=== PATIENT | female | born 1980 | race Caucasian/White ===

== ENCOUNTER 2021-12-30 11:57 | Inpatient (IN) | payer MEDICAID ==
[~2021-12-30] VITALS: Ht 157.5 cm; Wt 117.5 kg
[2021-12-30] MEDS ORDERED: ONDANSETRON HCL 4MG/2ML INJ IV STA (12:21)
[2021-12-30] MEDS ORDERED: KETOROLAC 30MG/ML VIAL IV STA (12:21)
[2021-12-30] MEDS ORDERED: SODIUM CHLORIDE 0.9% 1,000 ML IV ONE (12:30)
[2021-12-30 13:21] LABS: BASOPHILS % 0.7 % (0.0-2.0); EOSINOPHILS % 0.3 % (0.0-5.0); HEMATOCRIT. 46.7 % (36.0-48.0); HEMOGLOBIN. 15.4 g/dL (12.0-16.0); LYMPHOCYTES % 13.7 % (20.0-50.0); MEAN CORPUSCULAR HEMOGLOBIN 29.2 pg (28.0-32.0); MEAN CORPUSCULAR VOLUME 88.6 fL (81.0-99.0); MEAN PLATELET VOLUME 8.2 fl (7.4-10.4); MONOCYTES % 6.6 % (2.0-8.0); NEUTROPHILS % 78.7 % (40.0-76.0); PLATELET 280 x1000/uL (130-400); RED BLOOD CELL COUNT 5.28 mill/uL (4.2-5.4); RED CELL DISTRIBUTION WIDTH 12.8 % (11.6-14.6)
[2021-12-30 13:30] LABS: CHLORIDE 106 mEq/L (98-107)
[2021-12-30 13:45] LABS: HCG SCREEN NEGATIVE
[2021-12-30] MEDS ORDERED: IOHEXOL-300 100 ML BOTTLE ONE (14:41)
[2021-12-30 17:59] LABS: CLARITY URINE CLEAR (CLEAR); COLOR URINE YELLOW (YELLOW); KETONES URINE NEGATIVE (NEGATIVE); LEUKOCYTE ESTERASE URINE 1+ (NEGATIVE); NITRITE URINE NEGATIVE (NEGATIVE); OCCULT BLOOD URINE TRACE (NEGATIVE); PH URINE 6.5 (4.5-8.0); PROTEIN URINE TRACE (NEGATIVE); SPECIFIC GRAVITY URINE 1.065 (1.005-1.030)
[2021-12-30] MEDS ORDERED: CEFTRIAXONE 1 G PREMIX 50 ML IV ONE (18:30)
[2021-12-30] MEDS ORDERED: CLONIDINE 0.1MG TABLET PO PRN (20:00)
[2021-12-30] MEDS ORDERED: HYDROMORPHONE HCL/PF 2MG/ML CPJ IV PRN (20:00)
[2021-12-30] MEDS ORDERED: ONDANSETRON HCL 4MG/2ML INJ IV PRN (20:00)
[2021-12-30] MEDS ORDERED: ENOXAPARIN 40MG/0.4ML SYR SUBCUT SCH (20:00)
[2021-12-30] MEDS ORDERED: GUAIFENESIN 200MG/10ML SUGAR FREE UDC PO PRN (20:00)
[2021-12-30] MEDS ORDERED: ACETAMINOPHEN 325MG TABLET PO PRN (20:00)
[2021-12-30] MEDS ORDERED: LEVOFLOXACIN 500MG PREMIX 100 ML IV SCH (20:00)
[2021-12-30] MEDS ORDERED: HYDROCODONE/APAP 7.5/325MG 1 TAB TABLET PO PRN (20:00)
[2021-12-30] MEDS ORDERED: DOCUSATE SODIUM 100MG CAPSULE PO PRN (20:00)
[2021-12-30] MEDS: ENOXAPARIN 30MG/0.3ML SYR SUBCUT SCH (22:30)
[2021-12-31 00:10] VITALS: BP 103/61
[2021-12-31] MEDS: DEXT 5%/0.45% NACL 1000ML 1,000 ML IV SCH ×2 (00:37→10:25)
[2021-12-31 04:00] VITALS: BP 91/57
[2021-12-31 06:42] LABS: BASOPHILS % 0.8 % (0.0-2.0); EOSINOPHILS % 2.4 % (0.0-5.0); HEMOGLOBIN. 13.7 g/dL (12.0-16.0); LYMPHOCYTES % 37.8 % (20.0-50.0); MEAN CORPUSCULAR HEMOGLOBIN 29.8 pg (28.0-32.0); MEAN CORPUSCULAR VOLUME 89.1 fL (81.0-99.0); MEAN PLATELET VOLUME 7.8 fl (7.4-10.4); MONOCYTES % 6.6 % (2.0-8.0); NEUTROPHILS % 52.4 % (40.0-76.0); PLATELET 243 x1000/uL (130-400); RED BLOOD CELL COUNT 4.61 mill/uL (4.2-5.4); RED CELL DISTRIBUTION WIDTH 12.8 % (11.6-14.6)
[2021-12-31 07:07] LABS: CHLORIDE 108 mEq/L (98-107)
[2021-12-31 08:00] VITALS: BP 104/60
[2021-12-31] MEDS: ENOXAPARIN 30MG/0.3ML SYR SUBCUT SCH (10:26)
[2021-12-31 12:00] VITALS: BP 99/61
[2021-12-31 16:00] VITALS: BP 101/65
[2021-12-31 18:12] VITALS: BP 101/65
== END 2021-12-31 18:39 | disposition home or self-care (01) | DRG 463 ==
LOC: EDBD 12:03 → ER 12:03 → MICUSO 18:20 → ENRESERV 20:51 → 5WST 12-31 01:43
PROVIDERS: ADMIT Hospitalist; ATTEND Hospitalist
DX: N13.6 Pyonephrosis (principal); F17.200 Nicotine dependence, unspecified, uncomplicated; I10 Essential (primary) hypertension; Z20.822 Contact with and (suspected) exposure to COVID-19; Z90.49 Acquired absence of other specified parts of digestive tract; Z98.891 History of uterine scar from previous surgery
CPT/HCPCS: 36415; 74177; 80053; 81003; 84703; 85025; 87426; 99285; J0696; J1650; J1885; J1956; J2405; J7030; Q9967

== ENCOUNTER 2024-02-01 07:40 | Emergency (ER) | payer MEDICAID ==
[~2024-02-01] VITALS: Ht 160 cm; Wt 111.0 kg
[~2024-02-01 07:40] MED LIST: HYDR25TA PO; LEVO-65 PO; LISI10TA26 PO
[2024-02-01 08:01] VITALS: O2SAT 97
[2024-02-01] MEDS: METHYLPREDNISOLONE SOD SUCC 40MG/ML (ACT-O-VIAL) IV ONE (10:20)
[2024-02-01] MEDS: DIPHENHYDRAMINE 50MG/ML VIAL IV ONE (10:20)
[2024-02-01] MEDS: FAMOTIDINE 20MG/2ML VIAL IV ONE (10:20)
[2024-02-01] MEDS ORDERED: MED4 MT (11:35)
[2024-02-01 11:58] VITALS: BP 118/70; PULSE 104; RESP 18; TEMP 99
== END 2024-02-01 12:05 | disposition home or self-care (01) ==
LOC: ER 07:40
DX: T78.40XA Allergy, unspecified, initial encounter (principal); L50.9 Urticaria, unspecified; I10 Essential (primary) hypertension; Z98.890 Other specified postprocedural states; Z90.49 Acquired absence of other specified parts of digestive tract; X58.XXXA Exposure to other specified factors, initial encounter
CPT/HCPCS: 96374; 96375; 99284; J1200; J3490; J2920; Z7610 ×3